=== PATIENT | female | born 1965 | race African-American/Black ===

== ENCOUNTER 2019-12-11 12:55 | Emergency (ER) | payer OTHER ==
[2019-12-11 13:22] VITALS: BP 109/57; PULSE 66; TEMP 98.4; BMI 33.9
--- NOTE | 2019-12-11 14:10 | PDOC ---
History of Present Illness - General Chief Complaint: Injury Stated Complaint: FALL Time Seen by Provider: 12/11/19 13:35 History Source: Patient - History of Present Illness Occurred: reports: other Pain Location: reports: back, chest Past History - Past Medical History Allergies/Adverse Reactions: Allergies Allergy/AdvReac Type Severity Reaction Status Date / Time No Known Allergies Allergy Verified 12/11/19 13:18 Home Medications: Ambulatory Orders Nitrofurantoin Monohyd/M-Cryst [Macrobid -] 100 mg PO BID #14 capsule 01/07/15 COPD: No Diabetes: No (pre) Thyroid Disease: Yes - Surgical History Cholecystectomy: Yes - Psycho Social/Smoking Cessation Hx Smoking History: Former smoker Have you smoked in the past 12 months: No Information on smoking cessation initiated: No Hx Alcohol Use: No Drug/Substance Use Hx: No Substance Use Type: None Hx Substance Use Treatment: No Trauma Specific PMHX - Complaint Specific PMHX Arthritis: Yes Back Injury: Yes Review of Systems - Review of Systems Respiratory: No: Shortness of Breath Cardiac (ROS): No: Chest Pain Musculoskeletal: Yes: Back Pain *Physical Exam - Vital Signs Last Vital Signs Temp Pulse Resp BP Pulse Ox 98.4 F 66 18 109/57 L 98 12/11/19 13:18 12/11/19 13:18 12/11/19 13:18 12/11/19 13:18 12/11/19 13:18 - Physical Exam General Appearance: Yes: Appropriately Dressed. No: Apparent Distress HEENT: positive: Normal Voice Neck: positive: Supple Respiratory/Chest: positive: Normal Breath Sounds. negative: Chest Tender, Respiratory Distress Cardiovascular: positive: Regular Rate, S1, S2 Gastrointestinal/Abdominal: positive: Soft. negative: Tender Musculoskeletal: positive: Other (ttp minor to L upper back pain, no crepitus/ step offs) Integumentary: positive: Dry, Warm Neurologic: positive: Fully Oriented, Alert, Normal Mood/Affect ED Treatment Course - RADIOLOGY Radiology Studies Ordered: Category Date Time Status RIBS BILATERAL [RAD] Stat Radiology 12/11/19 13:56 Ordered Medical Decision Making - Medical Decision Making 12/11/19 14:07 54-year-old female, no significant history, here with L upper back/side pain after fall 6 days ago. States she tripped and fell and that she landed mostly on her left side. States pain worsened 2 days ago and is not taking any pain medication. No shortness of breath. see exam Chest contusion Rib series neg Dc w/ OTC meds prn pain Discharge - Discharge Information Problems reviewed: Yes Clinical Impression/Diagnosis: Back contusion Qualifiers: Encounter type: initial encounter Laterality: left Qualified Code(s): S20.222A - Contusion of left back wall of thorax, initial encounter Condition: Good Disposition: HOME - Follow up/Referral - Patient Discharge Instructions Patient Printed Discharge Instructions: Contusion Additional Instructions: Your x-ray did not show any broken bones. You most likely have muscle pain. Take Motrin or Tylenol for pain as needed - Post Discharge Activity
== END 2019-12-11 14:58 | disposition home or self-care (01) ==
LOC: JERFT 12:55
DX: S20.222A Contusion of left back wall of thorax, initial encounter (principal); W01.0XXA Fall on same level from slipping, tripping and stumbling without subsequent striking against object, initial encounter; Y93.89 Activity, other specified; Y92.522 Railway station as the place of occurrence of the external cause; Y99.8 Other external cause status
CPT/HCPCS: 71111-TC-FY; 99283-25

== ENCOUNTER → 2021-06-23 | Day surgery (SDC) | payer OTHER | END | disposition home or self-care (01) | LOC: JRADIR 10:05 | PROVIDERS: ATTEND Internal Medicine Endocrinology, Diabetes & Metabolism | PROC: 0G9H3ZX Drainage of Right Thyroid Gland Lobe, Percutaneous Approach, Diagnostic (ICD-10-PCS; principal; 2021-06-23) | DX: E04.1 Nontoxic single thyroid nodule (principal) | CPT/HCPCS: 10005; 76942; 88173; 88305-TC ==